=== PATIENT | female | born 1945 | race Caucasian/White ===

== ENCOUNTER → 2016-08-10 | Outpatient (CLI) | payer MEDICARE ==
[~2016-08-10] MED LIST: AMIO200T2 PO; AZEL23SP NS; BARIUM SULFATE 135 ML (E-Z HD) PO ONE; BENA5TAB2 PO; CEFP100T PO; CYAN100080 PO; DABI150C PO; DULO60CA6 PO; FER325 PO; FEXO180T61 PO; FOLI-49 PO; GABA-526 PO; LEVO125T PO; LIPA1CAP45 PO; LORA0.5T PO; LUBI24CA7 PO; METH500T8 PO; METO25TA4 PO; METR500T14 PO; MONT10TA21 PO; MULT-860 PO; PREM3 PO; RANI300T3 PO; SIME80TA6 PO; SUMA100T9 PO; TIOT18CA IH; TRAM50TA2 PO; [UNRECOGNIZED DRUG - CODE] PO; [UNRECOGNIZED DRUG - CODE] PO
--- NOTE | 2016-08-10 16:56 | RADRPT ---
PROCEDURE: Video-fluoroscopy swallowing study. CLINICAL INDICATION: Dysphagia. TECHNIQUE: Fluoroscopic guided video swallowing study was done in conjunction with the speech ther apist. The study was confined to the oral, pharyngeal, and cervical phases of the swallowing mechani sm. 3.0 minutes of fluoroscopy time was used. COMPARISON: No prior study is available for comparison. FINDINGS: There is evidence of aspiration during swallowing of thin liquid by cup. The patient had cough refl ex. There is transient penetration with nectar by cup and straw. IMPRESSION: 1. Abnormal study with transient penetration and aspiration. 2. Please refer to the speech therapist's recommendations for future feedings. RPTAT: QQ .Hermann Hopkins MD, MD Date Time Electronically viewed and signed by .Hermann Hopkins MD, on 08/10/2016 16:55 .R/
== END | disposition home or self-care (01) ==
LOC: RAD 12:43
PROVIDERS: ATTEND Internal Medicine
DX: F45.8 Other somatoform disorders (principal)
CPT/HCPCS: 74230; 92611; G8996; G8997; G8998

== ENCOUNTER 2018-01-04 14:24 | Inpatient (IN) | END 2018-01-05 15:36 | disposition home or self-care (01) | DRG 392 ==

== ENCOUNTER 2018-10-24 05:29 | Day surgery (SDC) | payer MEDICARE, OTHER ==
[~2018-10-24] VITALS: Ht 157.5 cm; Wt 79.4 kg
[2018-10-24] VITALS (15 sets, daily range): BP systolic 119–153; BP diastolic 50–77; PULSE 58–68; RESP 11–20; Ht 157.5 cm; Wt 79.4 kg
[~2018-10-24 05:29] MED LIST changes: -AMIO200T2 PO; -BARIUM SULFATE 135 ML (E-Z HD) PO ONE; -BENA5TAB2 PO; +BENA5TAB33 PO; -CEFP100T PO; +LEVO500T48 PO; -LIPA1CAP45 PO; -METH500T8 PO; +METR500T PO; -METR500T14 PO; -RANI300T3 PO; -SIME80TA6 PO; +SUMA100T3 PO; -SUMA100T9 PO; +TOLT4CAP PO
[2018-10-24] MEDS ORDERED: BUPIVACAINE 0.25% (MPF) 30 ML INJ ONE (06:59)
[2018-10-24] MEDS ORDERED: LACTATED RINGER'S 1,000 ML IV SCH (07:00)
--- NOTE | 2018-10-24 07:07 | HPN ---
Date/Time of Note Date/Time of Note DATE: 10/24/18 TIME: 07:07 Interval H&P Admission Note Pt. seen H&P reviewed: No system changes THOMAS GALLEGOS MD Oct 24, 2018 07:07
[2018-10-24] MEDS ORDERED: DABI150C PO (07:12)
[2018-10-24] MEDS ORDERED: PREM3 PO (07:13)
[2018-10-24] MEDS ORDERED: METO-335 PO (07:13)
[2018-10-24] MEDS ORDERED: LOSA25TA12 PO (07:14)
[2018-10-24] MEDS ORDERED: DULO60CA6 PO (07:14)
[2018-10-24] MEDS ORDERED: LEVO150T87 PO (07:14)
[2018-10-24] MEDS ORDERED: FOLI-49 PO (07:15)
[2018-10-24] MEDS ORDERED: TIOT18CA INHALATION (07:15)
[2018-10-24] MEDS ORDERED: AZEL23SP NASAL (07:15)
[2018-10-24] MEDS ORDERED: LUBI24CA7 PO (07:16)
[2018-10-24] MEDS ORDERED: MIRA25TA PO (07:17)
[2018-10-24] MEDS ORDERED: MULT-853 PO (07:18)
[2018-10-24] MEDS ORDERED: CYAN500T46 PO (07:19)
[2018-10-24] MEDS ORDERED: MAGN250T10 PO (07:19)
[2018-10-24] MEDS ORDERED: FER325 PO (07:20)
[2018-10-24] MEDS ORDERED: VITA200C45 PO (07:20)
[2018-10-24] MEDS ORDERED: ASCO500C7 PO (07:20)
[2018-10-24] MEDS ORDERED: LORA-441 PO (07:21)
[2018-10-24] MEDS ORDERED: SUMA50TA2 PO (07:21)
--- NOTE | 2018-10-24 07:21 | PREAC ---
Date/Time of Note Date/Time of Note DATE: 10/24/18 TIME: 07:20 Anesthesia Eval and Record Evaluation Time Pre-Procedure Interview DATE: 10/24/18 TIME: 07:20 Age 73 Sex female NPO: 8 hrs Preoperative diagnosis Gallstones Planned procedure Lap Latanya Past Medical History Past Medical History: Includes Cardio: HTN, Dyslipidemia, Arrythmia Endo: Diabetes, Hypothyroid Pulm: Smoking Hx, COPD Heme: Anemia Surgery & Anesthesia Issues No known issue Meds Anticoagulation: No Beta Chris within 24 hr: No Reason Beta Chris not given: Pt. not on B-Chris Reported Medications Vitamin E* (Vitamin E*) 200 Unit Capsule, 400 UNIT PO DAILY, CAP 10/24/18 Ferrous Sulfate* (Ferrous Sulfate*) 325 Mg Tabec, 325 MG PO DAILY, TAB 10/24/18 Magnesium Oxide (Magnesium) 250 Mg Tablet, 250 MG PO AC DINNER, TAB 10/24/18 Cyanocobalamin* (Vitamin B12*) 500 Mcg Tab, 2000 MCG PO DAILY, TAB 10/24/18 Multivits-Min/Iron/FA/Lutein (Centrum Silver Women Tablet) 1 Each Tablet, 1 EACH PO DAILY, TAB 10/24/18 Mirabegron (Mybetriq) 25 Mg Tab.er.24h, 25 MG PO DAILY, TAB 10/24/18 Lubiprostone* (Amitiza*) 24 Mcg Capsule, 72 MCG PO AC A, #60 CAP 10/24/18 Folic Acid* (Folic Acid*) 1 Mg Tablet, 1 MG PO DAILY, TAB 10/24/18 Azelastine/Fluticasone (DYMISTA NASAL SPRAY) 23 Gm [place].pump, 1 SPRAY NASAL BID, #1 BOTTLE TO EACH NOSTRIL 10/24/18 Tiotropium Turner* (Spiriva*) 18 Mcg Cap.w.dev, 2 CAP INHALATION DAILY, #30 CAP 10/24/18 Duloxetine Hcl* (Cymbalta*) 60 Mg Capsule.dr, 60 MG PO DAILY, CAP 10/24/18 Levothyroxine Sodium* (Synthroid*) 150 Mcg Tablet, 150 MCG PO BEFORE BREAKFAST, #30 TAB 10/24/18 Losartan Potassium* (Losartan Potassium*) 25 Mg Tablet, 25 MG PO DAILY, TAB 10/24/18 Metoprolol Succinate* (Toprol XL*) 25 Mg Tab.sr.24h, 25 MG PO QPM, #30 TAB 10/24/18 Estrogens Conjugated* (Premarin*) 0.3 Mg Tablet, 0.3 MG PO DAILY, TAB 10/24/18 Dabigatran Etexilate Mesylate* (Pradaxa*) 150 Mg Capsule, 150 MG PO BID, CAP 10/24/18 Discontinued Reported Medications Tolterodine Tartrate* (Detrol LA*) 4 Mg Cap.sr.24h, 4 MG PO DAILY, #30 CAP 01/02/18 Lubiprostone* (Amitiza*) 24 Mcg Capsule, 24 MCG PO BID, #60 CAP 03/17/16 Biotin (Hard Nails) 2,500 Mcg Capsule, 5000 MCG PO PC MEALS 01/15/15 Tramadol HCl (Tramadol HCl) 50 Mg Tab, 50 MG PO BID PRN for PAIN, TAB 01/15/15 Duloxetine Hcl* (Cymbalta*) 60 Mg Capsule.dr, 60 MG PO DAILY, CAP 01/15/15 Gabapentin* (Gabapentin*) 600 Mg Tablet, 600 MG PO QHS, TAB 01/15/15 Vitamin E* (Vitamin E*) 400 Units Cap, 400 UNITS PO DAILY, CAP 09/18/14 Ferrous Sulfate* (Ferrous Sulfate*) 325 Mg Tabec, 325 MG PO DAILY, TAB 09/18/14 Cyanocobalamin* (Vitamin B-12*) 1,000 Mcg Tablet.sa, 1000 MCG PO DAILY, TAB 09/18/14 Mu-Vits-Min Th/Lycopene/Lutein (CENTRUM SILVER TABLET) 1 Each Tablet, 1 EACH PO DAILY 09/18/14 Lorazepam* (Lorazepam*) 0.5 Mg Tablet, 0.5 MG PO TID PRN for ANXIETY, TAB 09/18/14 Sumatriptan Succinate* (Imitrex*) 100 Mg Tablet, 100 MG PO DAILY PRN for HEADACHE, TAB May repeat after 2 hours if needed; MAX 200 mg/24 hours 09/18/14 Folic Acid* (Folic Acid*) 1 Mg Tablet, 1 MG PO DAILY, TAB 09/18/14 Fexofenadine Hcl* (Kailee*) 180 Mg Tablet, 180 MG PO DAILY, TAB 09/18/14 Azelastine/Fluticasone (DYMISTA NASAL SPRAY) 23 Gm [place].pump, 1 SPRAY NS BID 09/18/14 Tiotropium Turner* (Spiriva*) 18 Mcg Cap.w.dev, 2 INH IH AM, EA 09/18/14 Montelukast Sodium* (Singulair*) 10 Mg Tablet, 10 MG PO PC DINNER, TAB 09/18/14 Levothyroxine Sodium* (Synthroid*) 125 Mcg Tablet, 125 MCG PO DAILY, TAB 09/18/14 Benazepril Hcl* (Benazepril Hcl*) 5 Mg Tablet, 5 MG PO DAILY, TAB 09/18/14 Metoprolol Tartrate* (Lopressor*) 25 Mg Tablet, 25 MG PO BID, TAB 09/18/14 Estrogens Conjugated* (Premarin*) 0.3 Mg Tablet, 0.3 MG PO ONCE A WEEK, TAB 09/18/14 Dabigatran Etexilate Mesylate* (Pradaxa*) 150 Mg Capsule, 150 MG PO BID 11/12/12 Discontinued Scripts Metronidazole* (Flagyl*) 500 Mg Tablet, 500 MG PO TID for 7 Days, #21 TAB Prov:MANJULA LOPEZ MD- 01/05/18 Levofloxacin* (Levaquin*) 500 Mg Tablet, 500 MG PO DAILY@06 for 7 Days, #7 TAB Prov:MANJULA LOPEZ MD- 01/05/18 Current Medications Lactated Ringer's 1,000 ml @ 30 mls/hr Q24H IV Last administered on 10/24/18at 07:15; Admin Dose 30 MLS/HR; Start 10/24/18 at 07:00 Meds reviewed: Yes Allergies Coded Allergies: hydrocodone bit (Unverified Allergy, Unknown, VOMITING, MIGRAINES, 10/24/18) codeine (Unverified Adverse Reaction, Unknown, VOMITING, MIGRAINES, 10/24/18) Allergies Reviewed: Yes Labs/Studies Labs Reviewed: Reviewed by anesthesiologist test: N/A Studies: ECG Pre-procedure Exam Last vitals Vital Signs Date Temp Pulse Resp B/P (MAP) Pulse Ox O2 O2 Flow FiO2 Time Delivery Rate 10/24/18 97.4 58 20 149/77 95 07:10 (101) Airway: Adequate mouth opening, Adequate thyromental dist Mallampati: Mallampati II Teeth: Normal Lung: Normal Heart: Normal ASA Physical Status ASA physical status: 3 Emergency: None Planned Anesthetic General/MAC: ETT Nerve block: TAP (bilateral) Pre-operative Attestations Prior to commencing anesthesia and surgery, the patient was re-evaluated, there was verification of: *The patient's identity *The results of appropriate recent lab work and preoperative vital signs *The above evaluation not changing prior to induction *Anesthetic plan, risk benefits, alternative and complications discussed with patient/family; questions answered; patient/family understands, accepts and wishes to proceed. DONNA ZULUAGA Oct 24, 2018 07:21
[2018-10-24] MEDS ORDERED: DIPH1TAB PO (07:22)
[2018-10-24] MEDS ORDERED: TRAM50TA PO (07:22)
[2018-10-24] MEDS ORDERED: FENTAnyl 50 MCG/ML VIAL ONE (07:29)
[2018-10-24] MEDS ORDERED: ROPIVACAINE 0.5 % 30 ML VIAL ONE (07:30)
[2018-10-24] MEDS ORDERED: MEPERIDINE 25 MG INJ IV PRN (07:30)
[2018-10-24] MEDS ORDERED: ALBUTEROL 0.083% (NEB) 2.5 MG/3 ML AMP HHN PRN (07:30)
[2018-10-24] MEDS ORDERED: FENTAnyl 50 MCG/ML VIAL IV PRN ×2 (07:30)
[2018-10-24] MEDS ORDERED: HYDROmorphONE 1 MG/5 ML IV SYRINGE IV PRN ×2 (07:30)
[2018-10-24] MEDS ORDERED: METOCLOPRAMIDE 10 MG INJ IV PRN (07:30)
[2018-10-24] MEDS ORDERED: DIPHENHYDRAMINE 50 MG INJ IV PRN (07:30)
[2018-10-24] MEDS ORDERED: ONDANSETRON 4 MG INJ IV PRN ×2 (07:30→09:00)
[2018-10-24] MEDS ORDERED: ROCURONIUM 50 MG INJ ONE (08:28)
[2018-10-24] MEDS ORDERED: SUGAMMADEX SODIUM 200 MG/2 ML VIAL IV ONE (08:28)
[2018-10-24] MEDS ORDERED: SUCCINYLCHOLINE CHLORIDE 100 MG/5 ML SYG IV ONE (08:28)
[2018-10-24] MEDS ORDERED: LIDOCAINE 100 MG SYRINGE ONE (08:28)
[2018-10-24] MEDS ORDERED: PROPOFOL 20 ML ONE (08:28)
[2018-10-24] MEDS ORDERED: CEFAZOLIN 1 GM INJ ONE (08:28)
--- NOTE | 2018-10-24 08:42 | OPR ---
Date/Time of Note Date/Time of Note DATE: 10/24/18 TIME: 08:36 Operative Report Procedure Date: Oct 24, 2018 Preoperative Diagnosis 1. Gallstones without obstruction 2. Adhesions Postoperative Diagnosis 1. Gallstones without obstruction 2. Adhesions Operation/Procedure Performed 1. Laparoscopic cholecystectomy 2. Laparoscopic lysis of adhesions Surgeon Thomas Gallegos MD Glass Blowing Lathe Operator None Anesthesia Type: general Anesthesiologist: ODNNA ZULUAGA Estimated Blood Loss: minimal Transfusion none Specimen Gallbladder Grafts/Implants none Tubes/Drains None Complications none Pt Condition Post Procedure: stable Disposition: PACU Indications Symptomatic cholelithiasis Procedure Description After satisfactory general endotracheal anesthesia was achieved, the abdomen was prepped and draped in the usual fashion. Was a scar in the upper abdomen going from the xiphoid to the right mid abdomen. This was from previous bariatric procedure. In this case the abdomen was insufflated with carbon dioxide through a right upper quadrant varies needle to 15 mmHg pressure. The Veress needle was removed and the vision extended to 5 mm through which a 5 mm trocar was placed. A 5 mm 0 degree lens was placed. Laparoscopy showed extensive adhesions throughout the right upper quadrant and mid abdomen. Under direct visualization, a 12 mm epigastric trocar was able to be placed safely. Also a second 5 mm right upper quadrant trocar was placed under direct visualization. Camera was placed into the lateralmost 5 mm trocar site. Using the 12 and 5 mm trochars the adhesions to the entire mid abdomen were carefully taken down using sharp dissection. This freed up to mid abdomen enabling the umbilical port to be a fully placed under direct visualization. The abdomen was then placed into the umbilical port. The dome of the gallbladder was grasped and retracted superiorly the distal gallbladder was grasped and retracted inferolaterally. The hepatoduodenal ligament was carefully dissected between the gallbladder and the well-visualized jermain hepatis. The cystic duct was then dissected circumferentially and triply hemoclipped and divided high at the junction of the gallbladder and the cystic duct. The cystic artery measured approximately a millimeter and was divided over a clip. The gallbladder was then dissected from below using electrocautery dissection and placed fully intact into an Endo Catch removed by the epigastric route. Hemostasis of the liver bed was total and irrigant returned clear. The abdomen was then desufflated and all trochars were removed. The fascia of the epigastrium was closed with a single suture of 0 Vicryl. The skin punctures were infiltrated with 30 cc of 0.25% plain Marcaine and closed with nino. Sponge and needle counts were reported as correct x2. THOMAS GALLEGOS MD Oct 24, 2018 08:42
[2018-10-24] MEDS ORDERED: OXYCODONE/ACETAMINOPHEN (5/325) TAB PO PRN ×2 (09:00)
[2018-10-24] MEDS ORDERED: morphine 2 MG INJ IV PRN (09:00)
--- NOTE | 2018-10-24 13:34 | PAC ---
Date/Time of Note Date/Time of Note DATE: 10/24/18 TIME: 13:33 Post-Anesthesia Notes Post-Anesthesia Note Last documented vital signs Vital Signs Date Temp Pulse Resp B/P (MAP) Pulse Ox O2 O2 Flow FiO2 Time Delivery Rate 10/24/18 97.1 67 18 131/60 96 10:00 (83) 10/24/18 Room Air 09:32 10/24/18 6.0 08:55 Activity: WNL Respiratory function: WNL Cardiovascular function: WNL Mental status: Baseline Pain reasonably controlled: Yes Hydration appropriate: Yes Nausea/Vomiting absent: Yes DONNA ZULUAGA Oct 24, 2018 13:34
== END 2018-10-24 11:10 | disposition home or self-care (01) ==
LOC: SDS 05:29
PROVIDERS: ATTEND Surgery
DX: K80.10 Calculus of gallbladder with chronic cholecystitis without obstruction (principal); I10 Essential (primary) hypertension; E78.5 Hyperlipidemia, unspecified; E11.9 Type 2 diabetes mellitus without complications; D64.9 Anemia, unspecified
CPT/HCPCS: 47562; 88304; J0690; J1170; J2001; J2795; J3010

== ENCOUNTER 2018-10-26 13:41 | Emergency (ER) | payer MEDICARE, OTHER ==
[~2018-10-26] VITALS: Wt 75.0 kg
[~2018-10-26 13:41] MED LIST changes: +ASCO500C7 PO; +AZEL23SP NASAL; -AZEL23SP NS; -BENA5TAB33 PO; -CYAN100080 PO; +CYAN500T46 PO; +DIPH1TAB PO; -FEXO180T61 PO; -GABA-526 PO; -LEVO125T PO; +LEVO150T87 PO; -LEVO500T48 PO; +LORA-441 PO; -LORA0.5T PO; +LOSA25TA12 PO; +MAGN250T10 PO; +METO-335 PO; -METO25TA4 PO; -METR500T PO; +MIRA25TA PO; -MONT10TA21 PO; +MULT-853 PO; -MULT-860 PO; -SUMA100T3 PO; +SUMA50TA2 PO; -TIOT18CA IH; +TIOT18CA INHALATION; -TOLT4CAP PO; +TRAM50TA PO; -TRAM50TA2 PO; +VITA200C45 PO; -[UNRECOGNIZED DRUG - CODE] PO; -[UNRECOGNIZED DRUG - CODE] PO
--- NOTE | 2018-10-26 14:18 | ERD ---
ER Documentation Chief Complaint Chief Complaint R SIDE ABD PAIN SINCE TODAY. S/P LAP CHOLEY 3 DAYS AGO . BM OK PASSING GAS HPI 73-year-old female with a history of hypertension, COPD, hypothyroidism, atrial fibrillation, gastric bypass surgery, DJD and depression who is status post laparoscopic cholecystectomy on 10/24/2018 presents to the ED complaining of abdominal pain. Patient reports was doing well post surgery and pain was controlled with [place] but yesterday developed increasing, severe, right-sided abdominal pain with nausea but no vomiting unrelieved by oral analgesics. No diarrhea or constipation. Denies chest pain or palpitation. No dysuria, polyuria or hematuria. Denies leg pain or swelling. No chest pain, shortness of breath or cough. No hemoptysis. No fevers or chills. ROS All systems reviewed and are negative except as per history of present illness. Medications Home Meds Active Scripts Ondansetron Hcl* (Zofran*) 4 Mg Tablet, 4 MG PO Q6H for NAUSEA AND/OR VOMITING, #16 TAB Prov:MAURICIO CHAVEZ MD 10/26/18 Metronidazole* (Flagyl*) 500 Mg Tablet, 500 MG PO TID for 7 Days, TAB Prov:MAURICIO CHAVEZ MD 10/26/18 Levofloxacin* (Levaquin*) 500 Mg Tablet, 500 MG PO DAILY for 7 Days, TAB Prov:MAURICIO CHAVEZ MD 10/26/18 Reported Medications Tramadol Hcl* (Ultram*) 50 Mg Tablet, 50 MG PO TID PRN for PAIN, TAB 10/24/18 Diphenoxylate HCl/Atropine (Lomotil 2.5-0.025 mg Tablet) 1 Each Tablet, 1 TAB PO Q6H PRN for DIARRHEA, TAB 10/24/18 Sumatriptan Succinate* (Imitrex*) 50 Mg Tablet, 50 MG PO BID PRN for MIGRAINE HEADACHE, TAB May repeat after 2 hours if needed; MAX 200 mg/24 hours 10/24/18 Lorazepam* (Ativan*) 0.5 Mg Tablet, 0.5 MG PO TID PRN for ANXIETY, #60 TAB 10/24/18 Ascorbic Acid* (Vitamin C*) 500 Mg Capsule.sa, 1000 MG PO DAILY, CAP 10/24/18 Vitamin E* (Vitamin E*) 200 Unit Capsule, 400 UNIT PO DAILY, CAP 10/24/18 Ferrous Sulfate* (Ferrous Sulfate*) 325 Mg Tabec, 325 MG PO DAILY, TAB 10/24/18 Magnesium Oxide (Magnesium) 250 Mg Tablet, 250 MG PO AC DINNER, TAB 10/24/18 Cyanocobalamin* (Vitamin B12*) 500 Mcg Tab, 2000 MCG PO DAILY, TAB 10/24/18 Multivits-Min/Iron/FA/Lutein (Centrum Silver Women Tablet) 1 Each Tablet, 1 EACH PO DAILY, TAB 10/24/18 Mirabegron (Mybetriq) 25 Mg Tab.er.24h, 25 MG PO DAILY, TAB 10/24/18 Lubiprostone* (Amitiza*) 24 Mcg Capsule, 72 MCG PO AC A, #60 CAP 10/24/18 Folic Acid* (Folic Acid*) 1 Mg Tablet, 1 MG PO DAILY, TAB 10/24/18 Azelastine/Fluticasone (DYMISTA NASAL SPRAY) 23 Gm [place].pump, 1 SPRAY NASAL BID, #1 BOTTLE TO EACH NOSTRIL 10/24/18 Tiotropium [place]* (Spiriva*) 18 Mcg Cap.w.dev, 2 CAP INHALATION DAILY, #30 CAP 10/24/18 Duloxetine Hcl* (Cymbalta*) 60 Mg Capsule.dr, 60 MG PO DAILY, CAP 10/24/18 Levothyroxine Sodium* (Synthroid*) 150 Mcg Tablet, 150 MCG PO BEFORE BREAKFAST, #30 TAB 10/24/18 Losartan Potassium* (Losartan Potassium*) 25 Mg Tablet, 25 MG PO DAILY, TAB 10/24/18 Metoprolol Succinate* (Toprol XL*) 25 Mg Tab.sr.24h, 25 MG PO QPM, #30 TAB 10/24/18 Estrogens Conjugated* (Premarin*) 0.3 Mg Tablet, 0.3 MG PO DAILY, TAB 10/24/18 Dabigatran Etexilate Mesylate* (Pradaxa*) 150 Mg Capsule, 150 MG PO BID, CAP 10/24/18 Discontinued Reported Medications Tolterodine Tartrate* (Detrol LA*) 4 Mg Cap.sr.24h, 4 MG PO DAILY, #30 CAP 01/02/18 Lubiprostone* (Amitiza*) 24 Mcg Capsule, 24 MCG PO BID, #60 CAP 03/17/16 Biotin (Hard Nails) 2,500 Mcg Capsule, 5000 MCG PO PC MEALS 01/15/15 Tramadol HCl (Tramadol HCl) 50 Mg Tab, 50 MG PO BID PRN for PAIN, TAB 01/15/15 Duloxetine Hcl* (Cymbalta*) 60 Mg Capsule.dr, 60 MG PO DAILY, CAP 01/15/15 Gabapentin* (Gabapentin*) 600 Mg Tablet, 600 MG PO QHS, TAB 01/15/15 Vitamin E* (Vitamin E*) 400 Units Cap, 400 UNITS PO DAILY, CAP 09/18/14 Ferrous Sulfate* (Ferrous Sulfate*) 325 Mg Tabec, 325 MG PO DAILY, TAB 09/18/14 Cyanocobalamin* (Vitamin B-12*) 1,000 Mcg Tablet.sa, 1000 MCG PO DAILY, TAB 09/18/14 Mu-Vits-Min Th/Lycopene/Lutein (CENTRUM SILVER TABLET) 1 Each Tablet, 1 EACH PO DAILY 09/18/14 Lorazepam* (Lorazepam*) 0.5 Mg Tablet, 0.5 MG PO TID PRN for ANXIETY, TAB 09/18/14 Sumatriptan Succinate* (Imitrex*) 100 Mg Tablet, 100 MG PO DAILY PRN for HEADACHE, TAB May repeat after 2 hours if needed; MAX 200 mg/24 hours 09/18/14 Folic Acid* (Folic Acid*) 1 Mg Tablet, 1 MG PO DAILY, TAB 09/18/14 Fexofenadine Hcl* (Kailee*) 180 Mg Tablet, 180 MG PO DAILY, TAB 09/18/14 Azelastine/Fluticasone (DYMISTA NASAL SPRAY) 23 Gm [place].pump, 1 SPRAY NS BID 09/18/14 Tiotropium [place]* (Spiriva*) 18 Mcg Cap.w.dev, 2 INH IH AM, EA 09/18/14 Montelukast Sodium* (Singulair*) 10 Mg Tablet, 10 MG PO PC DINNER, TAB 09/18/14 Levothyroxine Sodium* (Synthroid*) 125 Mcg Tablet, 125 MCG PO DAILY, TAB 09/18/14 Benazepril Hcl* (Benazepril Hcl*) 5 Mg Tablet, 5 MG PO DAILY, TAB 09/18/14 Metoprolol Tartrate* (Lopressor*) 25 Mg Tablet, 25 MG PO BID, TAB 09/18/14 Estrogens Conjugated* (Premarin*) 0.3 Mg Tablet, 0.3 MG PO ONCE A WEEK, TAB 09/18/14 Dabigatran Etexilate Mesylate* (Pradaxa*) 150 Mg Capsule, 150 MG PO BID 11/12/12 Discontinued Scripts Metronidazole* (Flagyl*) 500 Mg Tablet, 500 MG PO TID for 7 Days, #21 TAB Prov:MANJULA LOPEZ MD- 01/05/18 Levofloxacin* (Levaquin*) 500 Mg Tablet, 500 MG PO DAILY@06 for 7 Days, #7 TAB Prov:MANJULA LOPEZ MD- 01/05/18 Allergies Allergies: Coded Allergies: hydrocodone bit (Unverified Allergy, Unknown, VOMITING, MIGRAINES, 10/26/18) codeine (Unverified Adverse Reaction, Unknown, VOMITING, MIGRAINES, 10/26/18) PMhx/Soc History of Surgery: Yes (partial thyroidectomy, gastric bypass, abd sx, Lap [place] 10/24/18) Anesthesia Reaction: No Hx Neurological Disorder: No Hx Respiratory Disorders: Yes (copd) Hx Cardiac Disorders: Yes (htn, afib, l.bbb) Hx Psychiatric Problems: No Hx Miscellaneous Medical Probl: Yes (uterine tumor) Hx Alcohol Use: Yes (socially) Hx Substance Use: No Hx Tobacco Use: Yes Smoking Status: Unknown if ever smoked FmHx No family history relevant to presenting complaint Physical Exam Vitals Vital Signs Date Temp Pulse Resp B/P (MAP) Pulse Ox O2 O2 Flow FiO2 Time Delivery Rate 10/26/18 98.3 81 18 147/74 100 Nasal 2.0 18:06 (98) Cannula 10/26/18 81 18 151/79 100 Nasal 2.0 17:00 (103) Cannula 10/26/18 79 18 138/86 100 Nasal 2.0 16:00 (103) Cannula 10/26/18 98.1 76 18 146/79 98 13:45 (101) Physical Exam Const: Moderate distress due to pain Head: Atraumatic Eyes: Normal Conjunctiva. Anicteric ENT: Pharynx is clear without erythema or exudate. Mucous members are moist. Neck: Full range of motion. Nontender. No JVD. Resp: Breath sounds are equal and clear to auscultation bilaterally Cardio: Regular rate and rhythm, no murmurs, gallops or rubs. Abd: Soft, normal bowel sounds, obese, mild generalized tenderness which localizes to the right upper quadrant. Laparoscopy wounds are healing well with mild surrounding ecchymoses but no erythema, induration or drainage. No rebound or guarding. Skin: No petechiae or rashes Back: No midline or flank tenderness Ext: No cyanosis, or edema. No calf swelling or tenderness Neur: Awake and alert. No focal deficit. Psych: Anxious but not depressed Result Diagram: 10/26/18 1422 10/26/18 1422 Results 24 hrs Laboratory Tests Test 10/26/18 14:22 White Blood Count 8.3 10^3/ul Red Blood Count 4.72 10^6/ul Hemoglobin 12.3 g/dl Hematocrit 39.2 % Mean Corpuscular Volume 83.1 fl Mean Corpuscular Hemoglobin 26.1 pg Mean Corpuscular Hemoglobin Concent 31.4 g/dl Red Cell Distribution Width 17.6 % Platelet Count 247 10^3/UL Mean Platelet Volume 9.7 fl Immature Granulocytes % 0.400 % Neutrophils % 75.7 % Lymphocytes % 14.2 % Monocytes % 5.8 % Eosinophils % 3.3 % Basophils % 0.6 % Nucleated Red Blood Cells % 0.0 /100WBC Immature Granulocytes # 0.030 10^3/ul Neutrophils # 6.3 10^3/ul Lymphocytes # 1.2 10^3/ul Monocytes # 0.5 10^3/ul Eosinophils # 0.3 10^3/ul Basophils # 0.1 10^3/ul Nucleated Red Blood Cells # 0.0 10^3/ul Sodium Level 140 mmol/L Potassium Level 4.3 mmol/L Chloride Level 103 mmol/L Carbon Dioxide Level 29 mmol/L Anion Gap 8 Blood Urea Nitrogen 15 mg/dl Creatinine 0.83 mg/dl Est Glomerular Filtrat Rate mL/min mL/min Glucose Level 114 mg/dl Calcium Level 9.5 mg/dl Total Bilirubin 0.3 mg/dl Direct Bilirubin 0.00 mg/dl Indirect Bilirubin 0.3 mg/dl Aspartate Amino Transf (AST/SGOT) 62 IU/L Alanine Aminotransferase (ALT/SGPT) 36 IU/L Alkaline Phosphatase 75 IU/L Troponin I < 0.012 ng/ml Total Protein 7.3 g/dl Albumin 4.1 g/dl Globulin 3.20 g/dl Albumin/Globulin Ratio 1.28 Lipase 80 U/L Current Medications Medications Dose Sig/Edmund Start Time Status Last (Trade) Ordered Route PRN Stop Time Admin Dose Reason Admin Sodium 1,000 ml @ Q1H STAT 10/26/18 DC 10/26/18 Chloride 1,000 mls/hr IV 14:28 14:45 10/26/18 15:27 1 mg ONCE STAT 10/26/18 DC 10/26/18 Hydromorphone IV 14:28 14:45 HCl 10/26/18 14:30 (Dilaudid) Ondansetron 4 mg ONCE STAT 10/26/18 DC 10/26/18 HCl (Zofran IV 14:28 14:45 Inj) 10/26/18 14:30 10 mg ONCE ONCE 10/26/18 DC 10/26/18 Metoclopramid IV 15:30 15:08 e HCl 10/26/18 15:31 (Reglan) 25 mg ONCE ONCE 10/26/18 DC 10/26/18 Diphenhydrami IV 15:30 15:08 ne HCl 10/26/18 15:31 (Benadryl) IV Flush 10 ml STK-MED 10/26/18 DC 10/26/18 (NS 10 ml) ONCE .ROUTE 15:20 15:34 10/26/18 15:21 Sodium 100 ml @ ud STK-MED 10/26/18 DC 10/26/18 Chloride ONCE .ROUTE 15:20 15:34 10/26/18 15:21 Iohexol 150 ml STK-MED 10/26/18 DC 10/26/18 (Omnipaque ONCE .ROUTE 15:20 15:34 300mg/ ml) 10/26/18 15:21 Procedures/MDM DOCUMENTS REVIEWED: ED nurse, prior ED, prior records IMAGING: Chest AP portable: Borderline cardiomegaly. Mild atelectasis in the left base but no acute effusions or infiltrates. No mediastinal widening. My interpretation. CT Abdomen and Pelvis with contrast. CLINICAL INDICATION: Abdominal pain. TECHNIQUE: CT scan of the abdomen and pelvis with contrast was performed on a multi-detector high-resolution CT scanner. The patient was scanned following the uncomplicated intravenous administration of 100 cc of Omnipaque 300. Co marcella and sagittal reformatted images were obtained from the axial source images. Images were reviewed on a high-resolution PACS workstation. The total exam CTDI equals 12.4 mGy and the total exam DLP equals 707 mGy-cm. DICOM images are available. 3-D reconstructions were notperformed. One or more of the following dose reduction techniques were utilized: 1.) Automated exposure control 2.) Adjustment of the mA +/- kV according to patient's size 3.) Use of iterative reconstruction technique. COMPARISON: 01/02/2018, noncontrast study FINDINGS: CT abdomen: Heart (where visible): Mildly enlarged. Lung bases: Linear atelectasis or scarring in both posterior costophrenic sulci. Liver: Enlarged, measuring 19.1 cm in length. There is a small amount of free fluid around the tip of the liver and in the right pericolic gutter. No visible focal mass. Biliary ductal system: The common bile duct is somewhat prominent, measuring 10 mm in diameter in the pancreatic head. Gallbladder: Surgically absent, removed in the interval since the prior study. Pancreas: Unremarkable Stomach: Previous bariatric surgery. Spleen: No gross splenomegaly. Abdominal colon: There is extensive right upper quadrant inflammatory or infiltrative change surrounding the region of the hepatic flexure. This region shows what appears to be circumferential wall thickening and mucosal enhancement. This involves a portion of the ascending colon. The remainder of the colon does not appear involved. Abdominal small bowel: Normal in caliber, course, and mucosal pattern. Adrenal glands: No visible masses. Right Kidney: Normal in size and contour without focal mass or collecting system dilatation. Left kidney: Normal in size and contour without focal mass or collecting system dilatation. Abdominal aorta: Normal caliber. Wall calcifications Lymph nodes: No significantly enlarged nodes. CT pelvis: Pelvic colon: Normal in caliber and course. No evidence of inflammatory change. Pelvic small bowel: Normal in caliber and course. Appendix: Identified. No evidence of inflammation. Urinary bladder: Normal in size and contour without visible wall thickening. Reproductive structures: The uterus is surgically absent. There are no adnexal masses. There is a tiny amount of free fluid in the pelvis.. Bony structures included in the scan: Diffuse degenerative disc disease most prominent at L3-4 and L4-5 with some degree of central spinal stenosis at both levels.. IMPRESSION: 1. Findings compatible with focal colitis in the hepatic flexure. A small amount of free fluid in the abdomen is probably secondary to this process; however, bile leak cannot be excluded. 2. Interval resection of the gallbladder, and evidence of previous bariatric surgery. 3. Common bile duct prominence at 10 mm. This may represent bile storage effect; however, distal common bile duct obstruction cannot be excluded without reference to hepatic enzyme levels and ratios. . 4. Aortic atherosclerosis. 5. Degenerative disc disease with hypertrophic changes producing central spinal stenosis at L3-4 and L4-5. 6. Surgical absence of the uterus. RPTAT:AAJJ Physician Katherin Date Time Electronically viewed and signed by Physician Katherin on 10/26/2018 15:56 GW/ Observation Note: Time: 3.5 hours Family Hx: No Hypertension Evaluation: Multiple exams showed improving symptoms and no evidence of peritonitis, bowel obstruction, acute postoperative intra-abdominal fluid collection, bile leak or infection. MEDICAL DECISION MAKIN-year-old female with a history of hypertension, COPD, hypothyroidism, atrial fibrillation, gastric bypass surgery, DJD and depression who is status post laparoscopic cholecystectomy on 10/24/2018 presents to the ED complaining of abdominal pain. CBC to evaluate for leukocytosis, anemia and thrombocytopenia is unremarkable. Chemistry is negative for electrolyte abnormalities, renal insufficiency or hyperglycemia. LFTs are negative for hyperbilirubinemia or transaminitis. Lipase is not elevated or consistent with pancreatitis. Urinalysis is pending. CT of the abdomen and pelvis with intravenous contrast to evaluate for postoperative bleeding, mass, fluid collection including biliary leak, colitis appendicitis and bowel obstruction reveals a focal area of colitis in the hepatic flexure and CBD dilatation of 10 mm likely postsurgical is LFTs are normal. Pain was initially controlled with intravenous Dilaudid and Zofran but patient continued to complain of severe nausea and return of pain which was controlled with Reglan and Benadryl. Presentation and findings were discussed with patient surgeon Dr. Pierce who recommends discharge with outpatient follow-up. Is also discussed with patient's PMD Dr. Bertrand, prognosis patient very well. She recommends oral antibiotics to treat the focal area of colitis and will follow-up in our office on Sunday. Patient symptoms resolved she is tolerating p.o. and feels well for discharge. Stable for discharge with precautionary instructions and outpatient follow-up as counseled. Counseled patient and family regarding diagnostic workup, diagnosis and need for followup. Understands to return to ED if symptoms recur, worsen or any other concerns. Departure Diagnosis: Primary Impression: Acute abdominal pain in right upper quadrant Additional Impressions: S/P laparoscopic cholecystectomy Acute colitis Condition: Stable (Improved) MAURICIO CHAVEZ MD Oct 26, 2018 14:17
[2018-10-26] MEDS ORDERED: HYDROmorphONE 1 MG/ML SYG IV STA (14:28)
[2018-10-26] MEDS ORDERED: ONDANSETRON 4 MG INJ IV STA (14:28)
[2018-10-26] MEDS ORDERED: SOD CHLORIDE 0.9% 1,000 ML IV STA (14:28)
[2018-10-26] MEDS ORDERED: SOD CHLORIDE 0.9% 100 ML ONE (15:20)
[2018-10-26] MEDS ORDERED: IOHEXOL 300MG/ML 150 ML BTL ONE (15:20)
[2018-10-26] MEDS ORDERED: METOCLOPRAMIDE 10 MG INJ IV ONE (15:30)
[2018-10-26] MEDS ORDERED: DIPHENHYDRAMINE 50 MG INJ IV ONE (15:30)
[2018-10-26] MEDS ORDERED: METR500T PO (17:50)
[2018-10-26] MEDS ORDERED: ONDA4TAB8 PO (17:50)
[2018-10-26] MEDS ORDERED: LEVO500T48 PO (17:50)
[2018-10-26 18:06] VITALS: BP 147/74; PULSE 81; RESP 18
== END 2018-10-26 18:12 | disposition home or self-care (01) ==
LOC: E/R 13:41
DX: K52.9 Noninfective gastroenteritis and colitis, unspecified (principal); I10 Essential (primary) hypertension; J44.9 Chronic obstructive pulmonary disease, unspecified; Z87.891 Personal history of nicotine dependence; Z90.49 Acquired absence of other specified parts of digestive tract
CPT/HCPCS: 71045; 74177; 80053; 83690; 84484; 85025; 93005; J1170; J1200; J2405; J2765; J7030; Q9967; 36415; 96374; 96375